=== PATIENT | male | born 1990 | race Caucasian/White ===

== ENCOUNTER 2017-05-25 15:34 | Emergency (ER) | payer SELFPAY, OTHER | END 2017-05-25 17:50 | disposition left against medical advice (07) | LOC: FTE 15:34 | DX: Z53.21 Procedure and treatment not carried out due to patient leaving prior to being seen by health care provider (principal) ==

== ENCOUNTER 2017-10-26 13:28 | Emergency (ER) | payer OTHER | END 2017-10-26 14:53 | disposition home or self-care (01) | LOC: FTE 14:53 | DX: R21 Rash and other nonspecific skin eruption (principal) | CPT/HCPCS: 99283 ==

== ENCOUNTER 2018-01-01 14:37 | Emergency (ER) | payer OTHER ==
[2018-01-01] MEDS: ACETAMINOPHEN 325 MG TAB PO (15:49)
[2018-01-01] MEDS: LIDOCAINE 1% (MDV) 20 ML INJ SC (16:12)
== END 2018-01-01 16:30 | disposition home or self-care (01) ==
LOC: FTE 14:37
DX: L60.0 Ingrowing nail (principal)
CPT/HCPCS: 11765; 99283-25

== ENCOUNTER 2018-03-14 09:30 | Emergency (ER) | payer OTHER ==
[2018-03-14] MEDS: ACETAMINOPHEN 325 MG TAB PO (10:53)
[2018-03-14] MEDS: LIDOCAINE 1% (MDV) 20 ML INJ SC (11:48)
== END 2018-03-14 11:56 | disposition home or self-care (01) ==
LOC: FTE 09:30
DX: L60.0 Ingrowing nail (principal)
CPT/HCPCS: 11765; 99282-25

== ENCOUNTER 2018-05-01 15:21 | Emergency (ER) | payer OTHER | END 2018-05-01 18:04 | disposition home or self-care (01) | LOC: FTE 15:21 | DX: L60.0 Ingrowing nail (principal) | CPT/HCPCS: 99283; Z7502 ==

== ENCOUNTER 2018-06-27 03:23 | Emergency (ER) | payer OTHER ==
[2018-06-27] MEDS: DIPHENHYDRAMINE 25 MG CAP PO (06:44)
[2018-06-27] MEDS: IBUPROFEN 800 MG TAB PO (06:44)
[2018-06-27] MEDS: predniSONE 20 MG TAB PO (06:45)
== END 2018-06-27 07:04 | disposition home or self-care (01) ==
LOC: FTE 03:23
DX: L60.0 Ingrowing nail (principal); J30.9 Allergic rhinitis, unspecified; J06.9 Acute upper respiratory infection, unspecified
CPT/HCPCS: 99283; J7512

== ENCOUNTER 2018-08-30 02:12 | Emergency (ER) | payer OTHER ==
[2018-08-30] MEDS: CEPHALEXIN 500 MG CAP PO (04:52)
[2018-08-30] MEDS: HYDROCODONE/APAP (10/325) TAB PO (04:52)
[2018-08-30] MEDS: TRIMETHOPRIM/SULFAMETHOX (DS) TAB PO (04:52)
== END 2018-08-30 04:58 | disposition home or self-care (01) ==
LOC: FTE 02:12
DX: L60.0 Ingrowing nail (principal)
CPT/HCPCS: 99283; L3260